=== PATIENT | male | born 1930 | race Caucasian/White ===

== ENCOUNTER 2017-04-22 04:53 | Emergency (ER) | payer MEDICARE, BC ==
--- NOTE | 2017-04-22 05:57 | EDM.PDOC ---
ED HPI GENERAL MEDICAL PROBLEM - General Chief Complaint: Respiratory Problem Stated Complaint: "I'M SHORT OF BREATH" Time Seen by Provider: 04/22/17 05:07 Source of Information: Reports: Patient History Limitations: Reports: No Limitations - History of Present Illness INITIAL COMMENTS - FREE TEXT/NARRATIVE: History and physical: History of present illness: [Patient comes to the emergency room complaining of shortness of breath this morning. No previous medical records are available for review. His symptoms began suddenly approximately 2 hours prior to arrival. Patient was asleep but woke up due to feelings of shortness of breath. Describes a burning sensation in his left chest when his shortness of breath started but this resolved completely prior to arrival to ER. Admits to history of asthma but has not required treatment for this for several years.. He is currently on blood thinner , Sayvasa, but the reason for this is unclear. he had a valve replacement in February 2017. He recently moved to the [facility] from [place] where he is living with a nephew until he is admitted to the [facility] on April 23. He denies chest pain and cough. He denies any difficulty taking a deep breath but just feels as though he can't get a good breath of air. No fever or chills. Denies abdominal pain nausea and vomiting. No constipation or diarrhea. Denies] blood in his stools and black tarry stools. No burning with urination or urinary frequency. He has no low back pain. He has not noticed any swelling to his feet or lower legs. Denies new weakness. No dizziness or fainting.] Review of Systems: As per history of present illness and below otherwise all systems reviewed and negative. Past medical history: As per history of present illness and as reviewed below otherwise noncontributory. Surgical history: As per history of present illness and is reviewed below other rincon noncontributory. Social history: No reported history of drug or alcohol abuse. Family history: As per history of present illness and is reviewed below otherwise noncontributory. Physical exam: Gen.: Elderly male in no acute distress. Skin is llanes in color and dry to touch. HEENT: Atraumatic, normocephalic. Oral mucous membranes are slightly dry. PERRLA. Lungs: Clear to auscultation, breath sounds equal bilaterally. No wheezing crackles or rales. Heart: S1-S2, regular rate and rhythm. negative for clicks, rubs, and murmur. Abdomen: Bowel sounds are normoactive throughout. Abdomen is Soft, nondistended , nontender. Negative for masses , guarding, rebound. No organomegaly. Negative for costovertebral tenderness. Pelvis: Stable, nontender. Genitourinary: Deferred. Rectal: Normal sphincter tone. No hemorrhoids are noted. Stool sample is negative for occult blood. Extremities: atraumatic, negative for cords or calf pain. No cyanosis or edema to feet or lower legs. Neurovascular unremarkable. Neuro: Awake, alert, oriented. Motor and sensory unremarkable throughout. Exam nonfocal. Seems to be a reliable historian of his medical history. Diagnostics: [CBC, CMP, UA, troponin, chest x-ray, EKG, type and cross] Therapeutics: [baby asa x4, Lasix 40 mg IV, 1 g Nitro-Bid paste, 1 unit of packed red blood cells] Impression: [Chest pain Elevated troponin anemia] Plan: [Troponin elevated at 0.072. Hgb 8.2. BUN 35, creatinine 1.3, troponin 0.072 albumin 2.7. Patient's condition and lab findings are reviewed with Dr. Boyle at [facility], who agrees to accept patient for transfer. Dr. Boyle orders 1 unit packed red blood cells, oxygen at 2 L, Lasix 40 mg IV, 1 inch Nitropaste. 4 tot [facility] is contacted to transport patient to [place]. Patient's in agreement with today's plan. ] Definitive disposition and diagnosis is appropriate pending reevaluation and review of above. - Related Data Allergies Allergy/AdvReac Type Severity Reaction Status Date / Time meperidine [From Demerol] Allergy Nausea Verified 04/22/17 05:08 morphine Allergy Nausea Verified 04/22/17 05:08 Home Meds: Home Meds Amiodarone [Cordarone] 200 mg PO DAILY 04/22/17 [History] Edoxaban Tosylate [Savaysa] 30 mg PO DAILY 04/22/17 [History] Levothyroxine [Synthroid] 50 mcg DAILY 04/22/17 [History] amLODIPine [Norvasc] 10 mg PO BEDTIME 04/22/17 [History] Past Medical History HEENT History: Reports: Hard of Hearing Cardiovascular History: Reports: Heart Valve Replacement, High Cholesterol, Hypertension, [place], Pacemaker Respiratory History: Reports: Asthma Other Genitourinary History: BLADDER CA 2017 - Past Surgical History Musculoskeletal Surgical History: Reports: Hip Replacement ED ROS GENERAL - Review of Systems Review Of Systems: ROS reveals no pertinent complaints other than HPI. ED EXAM, GENERAL - Physical Exam Exam: See Below Course - Vital Signs Last Recorded V/S: Last Vital Signs Temp 97.4 F 04/22/17 05:01 Pulse 80 04/22/17 05:01 Resp 20 04/22/17 05:01 BP 156/79 H 04/22/17 05:01 Pulse Ox 94 L 04/22/17 05:01 - Orders/Labs/Meds Orders: Active Orders 24 hr Category Date Time Status EKG Documentation Completion [RC] STAT Care 04/22/17 05:34 Active Chest 2V [CR] Stat Exams 04/22/17 05:34 Taken RED BLOOD CELLS LP [BBK] Stat Lab 04/22/17 06:42 Results TYPE AND SCREEN [BBK] Stat Lab 04/22/17 06:42 Results Labs: Laboratory Tests 04/22/17 04/22/17 04/22/17 Range/Units 05:34 05:34 05:35 WBC 6.8 (5.0-10.0) 10^3/uL RBC 3.28 L (4.50-6.00) 10^6/uL Hgb 8.2 L (14.0-18.0) g/dL Hct 26.8 L (40.0-54.0) % MCV 81.7 L (82.0-94.0) fL MCH 25.0 L (27.0-32.0) pg MCHC 30.6 L (33.0-38.0) g/dL RDW Coeff of Carol 20.1 H (11.0-15.0) % Plt Count 304 (150-400) 10^3/uL Neut % (Auto) 72.4 (35-85) % Lymph % (Auto) 12.4 (10-55) % [place] % (Auto) 12.4 (0-16) % Eos % (Auto) 2.4 (0-5) % Baso % (Auto) 0.4 (0-3) % Neut # (Auto) 4.93 (1.80-7.00) 10^3/uL Lymph # (Auto) 0.84 L (1.00-4.80) 10^3/uL [place] # (Auto) 0.84 H (0.00-0.80) 10^3/uL Eos # (Auto) 0.16 (0.00-0.45) 10^3/uL Baso # (Auto) 0.03 10^3/uL Sodium 143 (136-145) mEq/L Potassium 4.2 (3.5-5.0) mEq/L Chloride 108 H (98-106) mEq/L Carbon Dioxide 25 (21-32) mmol/L BUN 35 H (7-18) mg/dL Creatinine 1.3 (0.7-1.3) mg/dL Est Cr Clr Drug Dosing 35.44 mL/min Estimated GFR (MDRD) 52 L (>=60) mL/min Glucose 105 H (75-99) mg/dL Lactic Acid 0.9 (0.4-2.0) mmol/L Calcium 8.3 L (8.4-10.1) mg/dL Total Bilirubin 0.6 (0.0-1.0) mg/dL AST 34 (15-37) U/L ALT 57 (12-78) U/L Alkaline Phosphatase 95 (46-116) U/L Troponin I 0.072 H (0.00-0.06) ng/mL Total Protein 6.6 (6.4-8.2) g/dL Albumin 2.7 L (3.4-5.0) g/dL Urine Color (YELLOW) Urine Appearance (CLEAR) Urine pH (4.5-8.0) Ur Specific [place] (1.003-1.020) Urine Protein (NEGATIVE) mg/dL Urine Glucose (UA) (NEGATIVE) mg/dL Urine Ketones (NEGATIVE) mg/dL Urine Occult Blood (NEGATIVE) Urine Nitrite (NEGATIVE) Urine Bilirubin (NEGATIVE) Urine Urobilinogen (0.2-1.0) EU/dL Ur Leukocyte Esterase (NEGATIVE) Urine RBC (0-5) /HPF Urine WBC (0-5) /HPF Ur Squamous Epith Cells (NOT SEEN) /HPF Calcium Oxalate Crystal (NOT SEEN) /HPF Blood Type Crossmatch 07/05/17 07/05/17 Range/Units 06:12 06:42 WBC (5.0-10.0) 10^3/uL RBC (4.50-6.00) 10^6/uL Hgb (14.0-18.0) g/dL Hct (40.0-54.0) % MCV (82.0-94.0) fL MCH (27.0-32.0) pg MCHC (33.0-38.0) g/dL RDW Coeff of Carol (11.0-15.0) % Plt Count (150-400) 10^3/uL Neut % (Auto) (35-85) % Lymph % (Auto) (10-55) % [place] % (Auto) (0-16) % Eos % (Auto) (0-5) % Baso % (Auto) (0-3) % Neut # (Auto) (1.80-7.00) 10^3/uL Lymph # (Auto) (1.00-4.80) 10^3/uL [place] # (Auto) (0.00-0.80) 10^3/uL Eos # (Auto) (0.00-0.45) 10^3/uL Baso # (Auto) 10^3/uL Sodium (136-145) mEq/L Potassium (3.5-5.0) mEq/L Chloride (98-106) mEq/L Carbon Dioxide (21-32) mmol/L BUN (7-18) mg/dL Creatinine (0.7-1.3) mg/dL Est Cr Clr Drug Dosing mL/min Estimated GFR (MDRD) (>=60) mL/min Glucose (75-99) mg/dL Lactic Acid (0.4-2.0) mmol/L Calcium (8.4-10.1) mg/dL Total Bilirubin (0.0-1.0) mg/dL AST (15-37) U/L ALT (12-78) U/L Alkaline Phosphatase (46-116) U/L Troponin I (0.00-0.06) ng/mL Total Protein (6.4-8.2) g/dL Albumin (3.4-5.0) g/dL Urine Color Yellow (YELLOW) Urine Appearance Clear (CLEAR) Urine pH 5.0 (4.5-8.0) Ur Specific [place] 1.025 H (1.003-1.020) Urine Protein 100 H (NEGATIVE) mg/dL Urine Glucose (UA) Negative (NEGATIVE) mg/dL Urine Ketones Negative (NEGATIVE) mg/dL Urine Occult Blood Negative (NEGATIVE) Urine Nitrite Negative (NEGATIVE) Urine Bilirubin Negative (NEGATIVE) Urine Urobilinogen 0.2 (0.2-1.0) EU/dL Ur Leukocyte Esterase Negative (NEGATIVE) Urine RBC Not seen (0-5) /HPF Urine WBC Not seen (0-5) /HPF Ur Squamous Epith Cells Occasional H (NOT SEEN) /HPF Calcium Oxalate Crystal Few H (NOT SEEN) /HPF Blood Type A POSITIVE Crossmatch See Detail Meds: Medications Discontinued Medications Generic Name Dose Route Start Last Admin Trade Name Zahra PRN Reason Stop Dose Admin Aspirin 324 mg 04/22/17 06:38 04/22/17 06:20 Aspirin PO 04/22/17 06:39 324 mg ONETIME ONE Administration Furosemide 40 mg 04/22/17 06:54 04/22/17 07:19 Lasix IVPUSH 04/22/17 06:55 40 mg NOW ONE Administration Nitroglycerin 1 gm 04/22/17 06:54 04/22/17 07:17 Nitro-Bid 2% TOP 04/22/17 06:55 1 gm ONETIME ONE Administration Departure - Departure Time of Disposition: 07:30 Disposition: DC/Tfer to Acute Hospital 02 Condition: Fair Clinical Impression: Elevated troponin Chest pain Qualifiers: Chest pain type: unspecified Qualified Code(s): R07.9 - Chest pain, unspecified Anemia Qualifiers: Anemia type: unspecified type Qualified Code(s): D64.9 - Anemia, unspecified - Discharge Information Forms: ED Department Discharge - My Orders Last 24 Hours: My Active Orders 04/22/17 05:34 EKG Documentation Completion [RC] STAT Chest 2V [CR] Stat 04/22/17 06:42 RED BLOOD CELLS LP [BBK] Stat TYPE AND SCREEN [BBK] Stat - Assessment/Plan Last 24 Hours: My Active Orders 04/22/17 05:34 EKG Documentation Completion [RC] STAT Chest 2V [CR] Stat 04/22/17 06:42 RED BLOOD CELLS LP [BBK] Stat TYPE AND SCREEN [BBK] Stat
[2017-04-22] MEDS ORDERED: Aspirin 81 MG Tab.Chew PO ONE (06:38)
[2017-04-22] MEDS ORDERED: Nitroglycerin 2% Oint 1 GM UD Packet TOP ONE (06:54)
[2017-04-22] MEDS ORDERED: Furosemide 40 MG/4 ML VIAL IVPUSH ONE (06:54)
[2017-04-22] MEDS ORDERED: Sodium Chloride 0.9% 250 ML IV SCH (07:45)
[2017-04-22 07:56] VITALS: BP 160/89
== END 2017-04-22 08:14 ==
LOC: CC.ED 04:53
DX: R07.9 Chest pain, unspecified (principal); R79.89 Other specified abnormal findings of blood chemistry; D64.9 Anemia, unspecified; E78.00 Pure hypercholesterolemia, unspecified; I25.2 Old myocardial infarction; I10 Essential (primary) hypertension; Z95.2 Presence of prosthetic heart valve; Z88.5 Allergy status to narcotic agent; Z79.899 Other long term (current) drug therapy
CPT/HCPCS: 36415; 36430; 71020; 80053; 81001; 83605; 84484; 85025; 86850; 86900; 86901; 86920; 86922; 93005; 96374; 99285; A9270; J1940; J7050; P9016; 93010; 96365; 96375